=== PATIENT | female | born 1985 | race Caucasian/White ===

== ENCOUNTER 2016-06-23 12:14 | Emergency (ER) | payer OTHER ==
[~2016-06-23 12:14] MED LIST: COUMADIN7.5 MG PO; HYDROCODON-ACE1 EAC4 PO; NICODERM 14MG PA1 EA TD
== END 2016-06-23 13:51 | disposition home or self-care (01) ==
LOC: ER 12:14
DX: S90.122A Contusion of left lesser toe(s) without damage to nail, initial encounter (principal); W22.03XA Walked into furniture, initial encounter; Z86.718 Personal history of other venous thrombosis and embolism; E07.9 Disorder of thyroid, unspecified; F17.210 Nicotine dependence, cigarettes, uncomplicated; Z79.899 Other long term (current) drug therapy
CPT/HCPCS: 73630; 99070; 99283